=== PATIENT | male | born 1985 | race American Indian/Alaskan Native ===

== ENCOUNTER 2017-07-04 20:19 | Emergency (ER) | payer SELFPAY ==
[2017-07-04 21:47] VITALS: BP 144/86
[2017-07-05] MEDS ORDERED: DECADRON IM STA (01:20)
[2017-07-05] MEDS ORDERED: TORADOL IM ONE (01:21)
[2017-07-05] MEDS ORDERED: DECADRON IV ONE (01:23)
[2017-07-05] MEDS ORDERED: TORADOL IV ONE (01:23)
[2017-07-05] MEDS ORDERED: NACL 0.9% 1000 ML 1,000 ML IV ONE (01:24)
[2017-07-05] MEDS ORDERED: CLEOCIN 900 MG/50 mL 900 MG/50 ML BAG IV ONE (01:25)
--- NOTE | 2017-07-05 01:25 | Emergency Department Report ---
ED ENT HPI - General Chief complaint: Sore Throat Stated complaint: THROAT PAIN Time Seen by Provider: 07/05/17 01:06 Source: patient Mode of arrival: Ambulatory Limitations: No Limitations - History of Present Illness Initial comments: Patient reports that he has sore throat, he said his tonsils was removed when he was young but he is not really sure. Patient has both tonsils per nurse's. Patient reports difficulty swallowing and, neck pain and drooling. Here from reports that he has fever and reports some coughing. The throat is 10 out of 10. Denies any difficulty speaking denies any nausea or vomiting. Denies any nasal congestion or headache. Patient said that he was in [facility] and they put him on penicillin and is being taken penicillin twice a day for the last 3 days. He could not come in before he got the penicillin from.. Patient with a history of schizophrenic disorder and bipolar disorder. MD complaint: sore throat, difficulty swallowing -: week(s) Location: throat Severity: severe Severity scale (0 -10): 10 Quality: constant, other (sore) Consistency: other (pain with swallowing) Improves with: none, other Worsens with: swallowing Context-Epistaxis: history of similar Associated Symptoms: fever, cough, pain with swallowing, sore throat. denies: gum swelling, toothache, tinnitus, hearing loss, discharge from ear, rhinorrhea - Related Data Previous Rx's Medication Instructions Recorded Last Taken Type Clindamycin [Clindamycin CAP] 300 mg PO Q8H 10 Days #30 cap 07/05/17 Unknown Rx Ibuprofen [Motrin] 600 mg PO Q8H PRN 4 Days #12 tablet 07/05/17 Unknown Rx Allergies Allergy/AdvReac Type Severity Reaction Status Date / Time No Known Allergies Allergy Unverified 07/04/17 21:49 ED Dental HPI - General Chief complaint: Sore Throat Stated complaint: THROAT PAIN Time Seen by Provider: 07/05/17 01:06 Source: patient Mode of arrival: Ambulatory Limitations: No Limitations - Related Data Previous Rx's Medication Instructions Recorded Last Taken Type Clindamycin [Clindamycin CAP] 300 mg PO Q8H 10 Days #30 cap 07/05/17 Unknown Rx Ibuprofen [Motrin] 600 mg PO Q8H PRN 4 Days #12 tablet 07/05/17 Unknown Rx Allergies Allergy/AdvReac Type Severity Reaction Status Date / Time No Known Allergies Allergy Unverified 07/04/17 21:49 ED Review of Systems ROS: Stated complaint: THROAT PAIN Other details as noted in HPI Comment: All other systems reviewed and negative Constitutional: fever Eyes: denies: eye discharge ENT: throat pain. denies: ear pain, congestion Respiratory: cough. denies: orthopnea, shortness of breath, SOB with exertion, SOB at rest, stridor, wheezing Cardiovascular: denies: chest pain, palpitations, dyspnea on exertion, orthopnea , edema, syncope, paroxysmal nocturnal dyspnea Gastrointestinal: denies: abdominal pain, nausea, vomiting, diarrhea, constipation, hematemesis, melena, hematochezia Musculoskeletal: denies: back pain, joint swelling, arthralgia, myalgia Skin: denies: rash Neurological: denies: headache, weakness, numbness, paresthesias, confusion, abnormal gait, vertigo ED Past Medical Hx - Past Medical History Previous Medical History?: Yes Hx Seizures: Yes Hx Psychiatric Treatment: Yes (schizophrenic,biploar) Hx Asthma: Yes - Surgical History Past Surgical History?: Yes Additional Surgical History: right tonsill removed as a child - Family History Family history: no significant - Social History Smoking Status: Current Every Day Smoker Substance Use Type: None - Medications Home Medications: Home Medications Medication Instructions Recorded Confirmed Last Taken Type Clindamycin [Clindamycin CAP] 300 mg PO Q8H 10 Days #30 cap 07/05/17 Unknown Rx Ibuprofen [Motrin] 600 mg PO Q8H PRN 4 Days #12 tablet 07/05/17 Unknown Rx ED Physical Exam - General Limitations: No Limitations General appearance: alert, in no apparent distress - Head Head exam: Present: atraumatic, normocephalic, normal inspection - Eye Eye exam: Present: normal appearance, PERRL, EOMI. Absent: periorbital swelling , periorbital tenderness Pupils: Present: normal accommodation - ENT ENT exam: Present: normal orophraynx, mucous membranes moist, TM's normal bilaterally, normal external ear exam - Expanded ENT Exam Expanded Ear exam: Present: normal external inspection Mouth exam: Present: normal external inspection. Absent: drooling, trismus, muffled voice, tongue normal, tongue elevation, laceration Teeth exam: Present: normal inspection Throat exam: Positive: tonsillar erythema, tonsillomegaly. Negative: normal inspection, tonsillar exudate, R peritonsillar mass, L peritonsillar mass - Neck Neck exam: Present: normal inspection, tenderness, full ROM, lymphadenopathy ( anterior neck), other (no C-spine tenderness). Absent: meningismus, thyromegaly - Expanded Neck Exam Expanded Neck exam: Present: tenderness (anterior neck). Absent: midline deformity, anterior neck swelling, thyroid mass, carotid bruit, tracheal deviation - Respiratory Respiratory exam: Present: normal lung sounds bilaterally. Absent: respiratory distress, wheezes, rales, rhonchi, stridor, chest wall tenderness, accessory muscle use, decreased breath sounds, prolonged expiratory - Cardiovascular Cardiovascular Exam: Present: normal rhythm, tachycardia, normal heart sounds. Absent: systolic murmur, diastolic murmur - GI/Abdominal GI/Abdominal exam: Present: soft, normal bowel sounds. Absent: distended, tenderness, guarding, rebound, rigid - Extremities Exam Extremities exam: Present: normal inspection, full ROM, normal capillary refill , other (no clubbing, cyanosis or edema. No neurovascular compromise. +2 pulses in all extremities). Absent: tenderness, pedal edema, joint swelling, calf tenderness - Back Exam Back exam: Present: normal inspection, full ROM. Absent: tenderness, CVA tenderness (R), CVA tenderness (L), muscle spasm, paraspinal tenderness, vertebral tenderness, rash noted - Neurological Exam Neurological exam: Present: alert, oriented X3, normal gait - Psychiatric Psychiatric exam: Present: normal affect, normal mood - Skin Skin exam: Present: warm, dry, intact, normal color. Absent: rash ED Course Vital Signs 07/04/17 07/05/17 07/05/17 21:39 01:57 02:27 Temperature 99.3 F Pulse Rate 112 H Respiratory 18 18 18 Rate Blood Pressure 144/86 O2 Sat by Pulse 98 Oximetry 07/05/17 05:23 Temperature 98.9 F Pulse Rate 90 Respiratory 18 Rate Blood Pressure O2 Sat by Pulse 100 Oximetry - Reevaluation(s) Reevaluation #1: 07/05/17 05:[address] soft tissue neck with IV contrast due to reports of difficulty swallowing, drooling and swollen tonsils. Patient had CT scan done that revealed no peritonsillar abscess but he does have polyps seen tonsils that are slightly prominent prominent but there are no mass or abscess. Epiglottis is normal and he does have bilateral cervical Lynphadenopathy ED Medical Decision Making - Lab Data Result diagrams: 07/05/17 01:29 07/05/17 01:29 Lab Results 07/05/17 07/05/17 Range/Units 01:29 01:29 WBC 11.5 H (4.5-11.0) K/mm3 RBC 4.54 (3.65-5.03) M/mm3 Hgb 14.2 (11.8-15.2) gm/dl Hct 41.5 (35.5-45.6) % MCV 92 (84-94) fl MCH 31 (28-32) pg MCHC 34 (32-34) % RDW 13.9 (13.2-15.2) % Plt Count 327 (140-440) K/mm3 Lymph % (Auto) 29.9 (13.4-35.0) % Dewitt % (Auto) 14.8 H (0.0-7.3) % Eos % (Auto) 0.5 (0.0-4.3) % Baso % (Auto) 0.5 (0.0-1.8) % Lymph # 3.4 (1.2-5.4) K/mm3 Dewitt # 1.7 H (0.0-0.8) K/mm3 Eos # 0.1 (0.0-0.4) K/mm3 Baso # 0.1 (0.0-0.1) K/mm3 Seg Neutrophils % 54.3 (40.0-70.0) % Seg Neutrophils # 6.2 (1.8-7.7) K/mm3 Sodium 138 (137-145) mmol/L Potassium 4.3 (3.6-5.0) mmol/L Chloride 98.9 (98-107) mmol/L Carbon Dioxide 25 (22-30) mmol/L Anion Gap 18 mmol/L BUN 12 (9-20) mg/dL Creatinine 1.0 (0.8-1.5) mg/dL Estimated GFR > 60 ml/min BUN/Creatinine Ratio 12 % Glucose 101 H (75-100) mg/dL Calcium 9.0 (8.4-10.2) mg/dL - Radiology Data Radiology results: report reviewed CT scan of the neck with contrast revealed patient with moderate adenoid hyperplasia, palate HEENT tonsils are slightly prominent but there is no asymmetry mass or abscess. There is bilateral cervical and airways are not compromised - Medical Decision Making ED course: Presented to the emergency room complaining of difficulty swallowing , drooling and sore throat. He reported that he has a history of tonsillectomy blood physical findings for enlarged tonsils and enlarged cervical lymph nodes. Patient had CT scan of soft tissue neck with contrast that showed no peritonsillar abscess or mass. Patient with tonsillitis. No airway compromise. Uvula is midline and tongue is normal. Please refer to radiology section for complete CT scan report. Patient had CBC done and his white count was mildly elevated he has a low-grade temp. BMP is stable. Pt given an IV normal saline 1 L emergency room, Toradol 30 mg IV, Zofran 4 mg IV and Decadron 10 mg IV and emergency room without any adverse reaction. He is also given clindamycin 600 mg IV. I discussed the patient that he has been taking penicillin for a long period of time and it is possible that he buildup resistance because he said when he was in [facility] he was taking it all the time. Also patient does not know iF penicillin is outdated. I discussed the patient and CT findings and lab findings along with diagnosis and treatment plan. Patient discharged home in stable condition with prescription for clindamycin and Motrin and to follow-up with primary care physician in 2 days. Critical care attestation.: If time is entered above; I have spent that time in minutes in the direct care of this critically ill patient, excluding procedure time. ED Disposition Clinical Impression: Recurrent tonsillitis, Fever in adult Pharyngitis Qualifiers: Pharyngitis/tonsillitis etiology: unspecified etiology Qualified Code(s): J02.9 - Acute pharyngitis, unspecified Disposition: DC- TO HOME OR SELFCARE Is pt being admited?: No Does the pt Need Aspirin: No Condition: Stable Instructions: Tonsillitis (ED), Pharyngitis (ED), Fever in Adults (ED) Additional Instructions: Please gargle with warm salt water Take Motrin as prescribed for sore throat Clindamycin as prescribed for tonsillitis that is resistant to penicillin Prescriptions: Clindamycin [Clindamycin CAP] 300 mg PO Q8H 10 Days #30 cap Ibuprofen [Motrin] 600 mg PO Q8H PRN 4 Days #12 tablet PRN Reason: Pain Referrals: PRIMARY CARE, [Primary Care Provider] - 2-3 Days [facility] [Outside] - 2-3 Days Forms: Work/School Release Form(ED)
[2017-07-05 01:40] LABS: Basophils % (Auto) 0.5 % (0.0-1.8); Eosinophils % (Auto) 0.5 % (0.0-4.3); Hematocrit 41.5 % (35.5-45.6); Hemoglobin 14.2 gm/dl (11.8-15.2); Mean Corpuscular HGB Conc 34 % (32-34); Mean Corpuscular Hemoglobin 31 pg (28-32); Mean Corpuscular Volume 92 fl (84-94); Platelet Count 327 K/mm3 (140-440); Red Blood Count 4.54 M/mm3 (3.65-5.03); Red Cell Distribution Width 13.9 % (13.2-15.2); White Blood Count 11.5 K/mm3 (4.5-11.0)
[2017-07-05 02:00] LABS: Anion Gap 18 mmol/L; BUN/Creatinine Ratio 12; Blood Urea Nitrogen 12 mg/dL (9-20); Carbon Dioxide 25 mmol/L (22-30); Chloride 98.9 mmol/L (98-107); Glucose 101 mg/dL (75-100); Potassium 4.3 mmol/L (3.6-5.0); Sodium 138 mmol/L (137-145)
--- NOTE | 2017-07-05 04:05 | Cat Scan Report ---
FINAL REPORT PROCEDURE: CT NECK W CON TECHNIQUE: Computerized axial tomography of the soft tissue neck was performed following the IV injection of iodinated nonionic contrast. HISTORY: sore throat , fever and difficulty swallow COMPARISON: No prior studies are available for comparison. FINDINGS: Skull and scalp: Normal. Paranasal sinuses: Normal. Nasopharynx: There is moderate adenoid hyperplasia.. Oral cavity: Jber tonsils are slightly prominent but there is no asymmetry, mass or abscess.. Epiglottis/vallecula: Normal . Larynx/pyriform sinuses: Normal . Thyroid gland: Normal . Lymph nodes: There is bilateral cervical lymphadenopathy. The largest node on the right is in the submandibular region measuring 2.3 centimeters. There is a prominent node in the left carotid space measuring 22 centimeters. There is no neck mass or abscess. Salivary glands: Normal . Upper thorax: Normal . IMPRESSION: There is moderate adenoid hyperplasia.. Jber tonsils are slightly prominent but there is no asymmetry, mass or abscess.. There is bilateral cervical lymphadenopathy. There is no compromise of the airway.
== END 2017-07-05 05:54 | disposition home or self-care (01) ==
LOC: ED 20:19
DX: J03.91 Acute recurrent tonsillitis, unspecified (principal); J02.9 Acute pharyngitis, unspecified; F17.210 Nicotine dependence, cigarettes, uncomplicated
CPT/HCPCS: 36415; 70491; 80048; 85025; 87116; 87430; 96365; 96375; 99284; J1100; J1885; J7030; Q9967

== ENCOUNTER 2017-07-09 10:22 | Emergency (ER) | payer SELFPAY ==
[2017-07-09] MEDS ORDERED: LIDOCAINE VISCOUS 2% PO ONE (13:32)
--- NOTE | 2017-07-09 13:38 | Emergency Department Report ---
ED ENT HPI - General Chief complaint: Sore Throat Stated complaint: SORE THROAT Time Seen by Provider: 07/09/17 12:13 Source: patient Mode of arrival: Ambulatory Limitations: No Limitations - History of Present Illness Initial comments: This is a 31-year-old male nontoxic, well nourished in appearance, no acute signs of distress presents to the ED with c/o of sore throat intermittently in chronic 4 years. Patient stated he had a follow-up appointment to get a tonsillitis but patient has not scheduled an appointment due to incarceration. Patient now presents with sore throat again. Denies any difficulty breathing, fever, chills, nausea, vomiting, chest pain, shortness of breath, headache or stiff neck. Denies any allergies. Past medical history includes asthma, psychiatric, and seizure. MD complaint: sore throat -: year(s) Location: throat Severity: mild Severity scale (0 -10): 8 Quality: aching Consistency: constant Improves with: none Worsens with: none Associated Symptoms: pain with swallowing, sore throat. denies: fever, cough, gum swelling, toothache, tinnitus, hearing loss, discharge from ear, rhinorrhea - Related Data Previous Rx's Medication Instructions Recorded Last Taken Type Clindamycin [Clindamycin CAP] 300 mg PO Q8H 10 Days #30 cap 07/05/17 Unknown Rx Ibuprofen [Motrin] 600 mg PO Q8H PRN 4 Days #12 tablet 07/05/17 Unknown Rx Amoxicillin/K Clav Tab [Augmentin 1 tab PO Q12HR #20 tab 07/09/17 Unknown Rx 875 mg] Nystas/Diphen/Xyl Visc/Mylanta 15 ml MM Q8H 10 Days udc 07/09/17 Unknown Rx [Magic Mouthwash] Allergies Allergy/AdvReac Type Severity Reaction Status Date / Time No Known Allergies Allergy Unverified 07/04/17 21:49 ED Dental HPI - General Chief complaint: Sore Throat Stated complaint: SORE THROAT Time Seen by Provider: 07/09/17 12:13 Source: patient Mode of arrival: Ambulatory Limitations: No Limitations - Related Data Previous Rx's Medication Instructions Recorded Last Taken Type Clindamycin [Clindamycin CAP] 300 mg PO Q8H 10 Days #30 cap 07/05/17 Unknown Rx Ibuprofen [Motrin] 600 mg PO Q8H PRN 4 Days #12 tablet 07/05/17 Unknown Rx Amoxicillin/K Clav Tab [Augmentin 1 tab PO Q12HR #20 tab 07/09/17 Unknown Rx 875 mg] Nystas/Diphen/Xyl Visc/Mylanta 15 ml MM Q8H 10 Days udc 07/09/17 Unknown Rx [Magic Mouthwash] Allergies Allergy/AdvReac Type Severity Reaction Status Date / Time No Known Allergies Allergy Unverified 07/04/17 21:49 ED Review of Systems ROS: Stated complaint: SORE THROAT Other details as noted in HPI Constitutional: denies: chills, fever Eyes: denies: eye pain, eye discharge, vision change ENT: throat pain. denies: ear pain Respiratory: denies: cough, shortness of breath, wheezing Cardiovascular: denies: chest pain, palpitations Endocrine: no symptoms reported Gastrointestinal: denies: abdominal pain, nausea, diarrhea Genitourinary: denies: urgency, dysuria Musculoskeletal: denies: back pain, joint swelling, arthralgia Skin: denies: rash, lesions Neurological: denies: headache, weakness, paresthesias Psychiatric: denies: anxiety, depression Hematological/Lymphatic: denies: easy bleeding, easy bruising ED Past Medical Hx - Past Medical History Previous Medical History?: Yes Hx Seizures: Yes Hx Psychiatric Treatment: Yes (schizophrenic,biploar) Hx Asthma: Yes - Surgical History Past Surgical History?: No Additional Surgical History: right tonsill removed as a child - Social History Smoking Status: Never Smoker Substance Use Type: None - Medications Home Medications: Home Medications Medication Instructions Recorded Confirmed Last Taken Type Clindamycin [Clindamycin CAP] 300 mg PO Q8H 10 Days #30 cap 07/05/17 Unknown Rx Ibuprofen [Motrin] 600 mg PO Q8H PRN 4 Days #12 tablet 07/05/17 Unknown Rx Amoxicillin/K Clav Tab [Augmentin 1 tab PO Q12HR #20 tab 07/09/17 Unknown Rx 875 mg] Nystas/Diphen/Xyl Visc/Mylanta 15 ml MM Q8H 10 Days udc 07/09/17 Unknown Rx [Magic Mouthwash] ED Physical Exam - General Limitations: No Limitations General appearance: alert, in no apparent distress - Head Head exam: Present: atraumatic, normocephalic, normal inspection - Eye Eye exam: Present: normal appearance, PERRL, EOMI. Absent: scleral icterus, conjunctival injection, nystagmus, periorbital swelling, periorbital tenderness Pupils: Present: normal accommodation - ENT ENT exam: Present: mucous membranes moist, TM's normal bilaterally, normal external ear exam - Expanded ENT Exam Expanded Ear exam: Present: normal external inspection Mouth exam: Present: normal external inspection, tongue normal. Absent: drooling, trismus, muffled voice, tongue elevation, laceration Teeth exam: Present: normal inspection Throat exam: Positive: tonsillar erythema, tonsillomegaly (2+), other (Uvula midline. No abscess or swelling noted. ). Negative: tonsillar exudate, R peritonsillar mass, L peritonsillar mass - Neck Neck exam: Present: normal inspection, full ROM. Absent: tenderness, meningismus, lymphadenopathy, thyromegaly - Respiratory Respiratory exam: Present: normal lung sounds bilaterally. Absent: respiratory distress, wheezes, rales, rhonchi, stridor, chest wall tenderness, accessory muscle use, decreased breath sounds, prolonged expiratory - Cardiovascular Cardiovascular Exam: Present: regular rate, normal rhythm, normal heart sounds. Absent: irregular rhythm, systolic murmur, diastolic murmur, rubs, gallop - GI/Abdominal GI/Abdominal exam: Present: soft, normal bowel sounds. Absent: distended, tenderness, guarding, rebound, rigid, diminished bowel sounds - Rectal Rectal exam: Present: deferred - Extremities Exam Extremities exam: Present: normal inspection, full ROM, normal capillary refill. Absent: tenderness, pedal edema, joint swelling, calf tenderness - Back Exam Back exam: Present: normal inspection, full ROM. Absent: tenderness, CVA tenderness (R), CVA tenderness (L), muscle spasm, paraspinal tenderness, vertebral tenderness, rash noted - Neurological Exam Neurological exam: Present: alert, oriented X3, CN II-XII intact, normal gait, reflexes normal - Psychiatric Psychiatric exam: Present: normal affect, normal mood - Skin Skin exam: Present: warm, dry, intact, normal color. Absent: rash ED Course Vital Signs 07/09/17 10:25 Temperature 98.8 F Pulse Rate 104 H Respiratory 16 Rate Blood Pressure 136/77 - Reevaluation(s) Reevaluation #1: 07/09/17 13:37 Patient is speaking in full sentences with no signs of distress noted. ED Medical Decision Making - Medical Decision Making This is a 31-year-old male that presents with tonsillitis. Patient is stable and was examined by me. Patient received lidocaine viscous for pain patient stated symptoms of sore throat is improving and is subsided. Patient was instructed Follow-up with a primary care doctor/ear nose and throat in 3-5 days or if symptoms worsen and continue return to emergency room as soon as possible. At time time of discharge, the patient does not seem toxic or ill in appearance. No acute signs of distress noted. Patient agrees to discharge treatment plan of care. No further questions noted by the patient. Patient received Augmentin and Magic mouthwash at discharge. Critical care attestation.: If time is entered above; I have spent that time in minutes in the direct care of this critically ill patient, excluding procedure time. ED Disposition Clinical Impression: Tonsillitis Disposition: DC-01 TO HOME OR SELFCARE Is pt being admited?: No Does the pt Need Aspirin: No Condition: Stable Instructions: Tonsillitis (ED) Additional Instructions: Follow-up with a primary care doctor/ENT in 3-5 days or if symptoms worsen and continue return to emergency room as soon as possible. Prescriptions: Amoxicillin/K Clav Tab [Augmentin 875 mg] 1 tab PO Q12HR #20 tab Nystas/Diphen/Xyl Visc/Mylanta [Magic Mouthwash] 15 ml MM Q8H 10 Days [facility] [place]: KJ GRACE MD [Primary Care Provider] - 3-5 Days THOMAS SUN MD [Staff Physician] - 3-5 Days [facility] [Provider Group] - 3-5 Days [facility] [Outside] - 3-5 Days [facility] [Outside] - 3-5 Days Forms: Work/School Release Form(ED)
[2017-07-09 15:10] VITALS: BP 139/87
== END 2017-07-09 15:09 | disposition home or self-care (01) ==
LOC: ED 10:22
DX: J03.90 Acute tonsillitis, unspecified (principal); J45.909 Unspecified asthma, uncomplicated
CPT/HCPCS: 99282

== ENCOUNTER 2017-07-14 15:02 | Emergency (ER) | payer SELFPAY ==
[2017-07-14 15:10] VITALS: BP 144/90
[2017-07-14] MEDS ORDERED: BICILLIN L-A IM ONE ×2 (15:32→21:49)
[2017-07-14] MEDS ORDERED: DECADRON IM ONE (15:32)
--- NOTE | 2017-07-14 15:36 | Emergency Department Report ---
Chief Complaint: Chest Pain Stated Complaint: HEADACHE/CHEST PAIN - HPI History of Present Illness: pt seen to tonsilitis on 07/05/2017 however did not fill clindamycin po as "I cant take pills I hate them" complains of throat pain and drooling at this time. Has phone number for [facility] [phone] [facility] for [facility] after tx pt is not HI or SI at this time. - Exam Vital Signs: Vital Signs 07/14/17 15:06 Temperature 99.4 F Pulse Rate 114 H Respiratory 16 Rate Blood Pressure 144/90 O2 Sat by Pulse 97 Oximetry MSE screening note: Focused history and physical exam performed. Due to findings the following was ordered: ED Disposition for MSE Condition: Stable
--- NOTE | 2017-07-14 21:35 | Emergency Department Report ---
ED ENT HPI - General Chief complaint: Chest Pain Stated complaint: HEADACHE/SORE THROAT Time Seen by Provider: 07/14/17 21:25 Source: patient Mode of arrival: Ambulatory Limitations: No Limitations - History of Present Illness Initial comments: 31-year-old male past medical history asthma, seizures, schizophrenia, bipolar disorder, recurrent tonsillitis presents with complaint of acute on chronic sore throat. Patient is awake and alert. Speaking in full sentences in no audible wheezing or stridor. States that his throat is hurting. Patient states that he was seen for this issue approximately a week ago but has not taken any medicines as he has not filled his prescriptions. Denies any pus or blood drainage from mouth. Patient denies chest pain shortness of breath nausea or vomiting. States that swallowing solids is somewhat painful but can swallow liquids. No trismus nodrooling no tripoding on exam. MD complaint: sore throat Onset/Timin -: week(s) Location: throat Severity: moderate Severity scale (0 -10): 4 Quality: aching Consistency: intermittent Worsens with: swallowing Associated Symptoms: sore throat - Related Data Previous Rx's Medication Instructions Recorded Last Taken Type Clindamycin [Clindamycin CAP] 300 mg PO Q8H 10 Days #30 cap 07/05/17 Unknown Rx Ibuprofen [Motrin] 600 mg PO Q8H PRN 4 Days #12 tablet 07/05/17 Unknown Rx Amoxicillin/K Clav Tab [Augmentin 1 tab PO Q12HR #20 tab 07/09/17 Unknown Rx 875 mg] Nystas/Diphen/Xyl Visc/Mylanta 15 ml MM Q8H 10 Days udc 07/09/17 Unknown Rx [Magic Mouthwash] Dextromethorphan/Benzocaine 1 each PO Q4H PRN #1 box 07/14/17 Unknown Rx [Cepacol Sorethroat-Cough Mukesh] Allergies Allergy/AdvReac Type Severity Reaction Status Date / Time No Known Allergies Allergy Unverified 07/04/17 21:49 ED Dental HPI - General Chief complaint: Chest Pain Stated complaint: HEADACHE/CHEST PAIN Time Seen by Provider: 07/14/17 21:25 Source: patient Mode of arrival: Ambulatory Limitations: No Limitations - Related Data Previous Rx's Medication Instructions Recorded Last Taken Type Clindamycin [Clindamycin CAP] 300 mg PO Q8H 10 Days #30 cap 07/05/17 Unknown Rx Ibuprofen [Motrin] 600 mg PO Q8H PRN 4 Days #12 tablet 07/05/17 Unknown Rx Amoxicillin/K Clav Tab [Augmentin 1 tab PO Q12HR #20 tab 07/09/17 Unknown Rx 875 mg] Nystas/Diphen/Xyl Visc/Mylanta 15 ml MM Q8H 10 Days udc 07/09/17 Unknown Rx [Magic Mouthwash] Dextromethorphan/Benzocaine 1 each PO Q4H PRN #1 box 07/14/17 Unknown Rx [Cepacol Sorethroat-Cough Mukesh] Allergies Allergy/AdvReac Type Severity Reaction Status Date / Time No Known Allergies Allergy Unverified 07/04/17 21:49 ED Review of Systems ROS: Stated complaint: HEADACHE/CHEST PAIN Other details as noted in HPI Constitutional: denies: chills, fever Eyes: denies: eye pain, eye discharge, vision change ENT: throat pain. denies: ear pain Respiratory: denies: cough, shortness of breath, wheezing Cardiovascular: denies: chest pain, palpitations Endocrine: no symptoms reported Gastrointestinal: denies: abdominal pain, nausea, diarrhea Genitourinary: denies: urgency, dysuria Musculoskeletal: denies: back pain, joint swelling, arthralgia Skin: denies: rash, lesions Neurological: denies: headache, weakness, paresthesias Psychiatric: denies: anxiety, depression Hematological/Lymphatic: denies: easy bleeding, easy bruising ED Past Medical Hx - Past Medical History Previous Medical History?: Yes Hx Seizures: Yes Hx Psychiatric Treatment: Yes (schizophrenic,biploar) Hx Asthma: Yes - Surgical History Past Surgical History?: Yes Additional Surgical History: right tonsill removed as a child - Social History Smoking Status: Current Every Day Smoker Substance Use Type: None - Medications Home Medications: Home Medications Medication Instructions Recorded Confirmed Last Taken Type Clindamycin [Clindamycin CAP] 300 mg PO Q8H 10 Days #30 cap 07/05/17 Unknown Rx Ibuprofen [Motrin] 600 mg PO Q8H PRN 4 Days #12 tablet 07/05/17 Unknown Rx Amoxicillin/K Clav Tab [Augmentin 1 tab PO Q12HR #20 tab 07/09/17 Unknown Rx 875 mg] Nystas/Diphen/Xyl Visc/Mylanta 15 ml MM Q8H 10 Days udc 07/09/17 Unknown Rx [Magic Mouthwash] Dextromethorphan/Benzocaine 1 each PO Q4H PRN #1 box 07/14/17 Unknown Rx [Cepacol Sorethroat-Cough Mukesh] ED Physical Exam - General Limitations: No Limitations General appearance: alert, in no apparent distress - Head Head exam: Present: atraumatic, normocephalic - Eye Eye exam: Present: normal appearance, PERRL, EOMI - ENT ENT exam: Present: mucous membranes moist - Expanded ENT Exam Expanded Throat exam: Positive: tonsillar erythema (no SPRING SETTER, no tonsillar exudates but some tonsillar erythema on exam) - Neck Neck exam: Present: normal inspection - Respiratory Respiratory exam: Present: normal lung sounds bilaterally. Absent: respiratory distress - Cardiovascular Cardiovascular Exam: Present: regular rate, normal rhythm. Absent: systolic murmur, diastolic murmur, rubs, gallop - GI/Abdominal GI/Abdominal exam: Present: soft, normal bowel sounds - Rectal Rectal exam: Present: deferred - Extremities Exam Extremities exam: Present: normal inspection - Back Exam Back exam: Present: normal inspection - Neurological Exam Neurological exam: Present: alert, oriented X3, CN II-XII intact, normal gait - Psychiatric Psychiatric exam: Present: normal affect, normal mood - Skin Skin exam: Present: warm, dry, intact, normal color. Absent: rash ED Course Vital Signs 07/14/17 15:06 Temperature 99.4 F Pulse Rate 114 H Respiratory 16 Rate Blood Pressure 144/90 O2 Sat by Pulse 97 Oximetry ED Medical Decision Making - Medical Decision Making A/P: Tonsillitis/pharyngitis 1-patient treated empirically with Bicillin. No clinical signs of peritonsillar abscess no trismus and no drooling no tripoding on clinical exam and oropharynx open and patent with the uvula midline on exam. Strep swab sent 2-decadron one time dose for anti-inflammatory effect 3-follow up with primary care and ENT 4-to clarify patient is complaining of sore throat states he does not currently have chest pain shortness of breath or palpitations at this time. I advised patient to fill the prescriptions that he was given for sore throat and will add throat lozenges to this regimen. Critical care attestation.: If time is entered above; I have spent that time in minutes in the direct care of this critically ill patient, excluding procedure time. ED Disposition Clinical Impression: Tonsillitis, Sore throat Pharyngitis Qualifiers: Pharyngitis/tonsillitis etiology: unspecified etiology Qualified Code(s): J02.9 - Acute pharyngitis, unspecified Disposition: TO HOME OR SELFCARE Is pt being admited?: No Does the pt Need Aspirin: No Condition: Stable Instructions: Tonsillitis (ED), Pharyngitis (ED) Prescriptions: Dextromethorphan/Benzocaine [Cepacol Sorethroat-Cough Mukesh] 1 each PO Q4H PRN #1 box PRN Reason: Sore Throat Referrals: [facility] [Outside] - 3-5 Days [facility] [Outside] - 3-5 Days Time of Disposition: 21:35
[2017-07-14] MEDS ORDERED: DECADRON ONE (21:49)
== END 2017-07-14 22:15 | disposition home or self-care (01) ==
LOC: ED 15:02
DX: J03.90 Acute tonsillitis, unspecified (principal); F17.200 Nicotine dependence, unspecified, uncomplicated
CPT/HCPCS: 87116; 87430; 96372; 99282; J0561; J1100

== ENCOUNTER 2019-10-27 21:14 | Emergency (ER) | payer SELFPAY ==
[2019-10-27 22:06] LABS: Hematocrit 41.9 % (35.5-45.6); Hemoglobin 13.7 gm/dl (11.8-15.2); Mean Corpuscular HGB Conc 33 % (32-34); Mean Corpuscular Volume 92 fl (84-94); Platelet Count 292 K/mm3 (140-440); Red Blood Count 4.57 M/mm3 (3.65-5.03); Red Cell Distribution Width 15.2 % (13.2-15.2)
[2019-10-27 22:19] LABS: BUN/Creatinine Ratio 11; Blood Urea Nitrogen 10 mg/dL (9-20); Hemolysis Index 8
[2019-10-27 22:33] LABS: Bilirubin,Urine NEG (Negative); Blood,Urine NEG (Negative); Color,Urine Yellow (Yellow); Mucus,Urine FEW /HPF; Protein,Urine <15 mg/dL mg/dL (Negative); WBC,Urine < 1.0 /HPF (0.0-6.0)
--- NOTE | 2019-10-27 22:38 | Emergency Department Report ---
HPI - General Chief Complaint: Psych Time Seen by Provider: 10/27/19 21:56 - HPI HPI: 34-year-old -[place] male presents to the emergency department for what appears to be a mental health evaluation secondary to auditory hallucinations and suicidal ideations. The patient appears to have a history of schizophrenia. The patient is not very forthcoming about the reason for his visit or his symptoms. When asked for details the patient says "I am getting really tired of always talking about this and explaining myself because nobody ever does an ything or tells me how to make it stop." However, during our conversation, the patient did mention suicidal ideations, auditory hallucinations and schizophrenia. The patient says "I do not want to take Seroquel." He also appears to be on Risperdal and Cogentin but does not know the doses. ED Past Medical Hx - Past Medical History Previous Medical History?: Yes Hx Seizures: Yes Hx Psychiatric Treatment: Yes (schizophrenia,biploar) Hx Asthma: Yes Additional medical history: schizophrenia - Surgical History Past Surgical History?: Yes Additional Surgical History: right tonsill removed as a child - Social History Smoking Status: Never Smoker - Medications Home Medications: Home Medications Medication Instructions Recorded Confirmed Last Taken Type Bictegrav/Emtricit/Tenofov Ala 1 cap PO QDAY 10/28/19 10/28/19 Unknown History [Biktarvy 50-200-25 mg (Nf)] ED Review of Systems ROS: Stated complaint: MH EVAL/SI Other details as noted in HPI Comment: Unobtainable due to pts medical conditions Psychiatric: auditory hallucinations, suicidal thoughts Physical Exam - Physical Exam Vital Signs: Vital Signs 10/27/19 21:53 Temperature 98.3 F Pulse Rate 94 H Respiratory 18 Rate Blood Pressure 110/75 [Left] O2 Sat by Pulse 97 Oximetry Physical Exam: GENERAL: The patient is well-developed well-nourished. HENT: Normocephalic. Atraumatic. Patient has moist mucous membranes. EYES: Extraocular motions are intact. NECK: Supple. Trachea is midline. CHEST/LUNGS: Clear to auscultation. There is no respiratory distress noted. HEART/CARDIOVASCULAR: Regular. There is no tachycardia. ABDOMEN: Abdomen is soft, nontender. Patient has normal bowel sounds. SKIN: Skin is warm and dry. NEURO: The patient is awake, alert, and oriented. The patient has no focal neurologic deficits. Normal speech. MUSCULOSKELETAL: There is no tenderness or deformity. There is no evidence of acute injury. ED Course Vital Signs 10/27/19 21:53 Temperature 98.3 F Pulse Rate 94 H Respiratory 18 Rate Blood Pressure 110/75 [Left] O2 Sat by Pulse 97 Oximetry ED Medical Decision Making - Lab Data Result diagrams: 10/27/19 21:49 10/27/19 21:49 - Medical Decision Making This patient presents to the emergency department with the complaint of auditory hallucinations and suicidal ideations. For this reason he has been made a 1013. His labs have been mostly unremarkable except for a urine drug screen positive for marijuana and cocaine. His vital signs been stable throughout his ED course. He appears medically cleared for psychiatric placement. - Differential Diagnosis Schizophrenia, schizoaffective, bipolar disorder, substance abuse Critical Care Time: No Critical care attestation.: If time is entered above; I have spent that time in minutes in the direct care of this critically ill patient, excluding procedure time. ED Disposition Clinical Impression: Auditory hallucinations, Suicidal ideations Disposition: [id number] PSY HOSP/PSY UNIT Is pt being admited?: No Condition: Stable Time of Disposition: 02:09
[2019-10-27 22:39] LABS: Amphetamine Screen,Urine PRESUMPTIVE NEGATIVE; Benzodiazepines Screen,Urine PRESUMPTIVE NEGATIVE; Methadone Screen,Urine PRESUMPTIVE NEGATIVE; Opiate Screen,Urine PRESUMPTIVE NEGATIVE
[2019-10-27 22:55] LABS: Cannabinoid Screen,Urine PRESUMPTIVE POSITIVE; Cocaine Screen,Urine PRESUMPTIVE POSITIVE
[2019-10-27 23:54] LABS: Basophils % (Manual) 0 % (0.0-1.8); Total Cells Counted 100
[2019-10-27 23:55] LABS: Anisocytosis Few; Large Platelets Few; Platelet Estimate Consistent w Auto
--- NOTE | 2019-10-29 15:04 | Consultation ---
History of Present Illness - Reason for Consult Consult date: 10/29/19 Reason for consult: Psychiatric assessment - History of Present Psychiatric Illness Mr. Mcqueen is a 34-year-old -[place] male, the patient is noted in in the recliner with his eyes closed easily aroused, he is dressed appropriately for the occasion he maintains eye contact. When asked why he was here the patient stated, "I am hearing voices telling me to hurt myself". The patient stated that he has a history of schizophrenia and bipolar and that he was just released from [facility] in September. The patient stated that he has not taken any medication since released from [facility] because he has no stable accommodation. Patient also reports visual hallucination of seeing aliens. The patient reports that he takes Risperdal and Cogentin. He reports that his depression is 8 out of 10. He reports sleeping and eating well and reports his mood has good. The patient reports suicidal thoughts of voices telling him to hurt himself. The patient denies homicidal ideations. PAST PSYCHIATRIC HISTORY: Diagnoses: Schizophrenia bipolar Suicide attempts or Self-harm behavior:yes Prior psychiatric hospitalizations: [facility] Substance Abuse history: Marijuana Previous psychiatric medications tried: Risperdal and Cogentin Outpatient treatment: Yes PAST MEDICAL HISTORY: Family Psychiatric History None reported or documented SOCIAL HISTORY Marital Status: Single Living Arrangements: Homeless Employment Status: Unemployed Access to guns/weapons: Denies Education: 12th History of Abuse: denies Legal History: Yes ROS: Constitutional: Negative for weight loss ENT: Negative for stridor Respiratory: Negative for cough or hemoptysis All other systems reviewed and are negative MENTAL STATUS General Appearance and Behavior: age appropriate, good eye contact, cooperative with questioning and polite Cooperation: Cooperative Psychomotor Behavior: within normal limits Mood: OK Affect and affective range: Congruent with stated mood Thought Process: Fluent/Logical and Goal-directed Thought Content: SI Speech: Normal volume and Regular rate and rhythm Intellectual Functioning Average Suicidal Ideation: YES Homicidal Ideation: Denies HI Impulse Control: intact Insight and Judgment: normal insight and judgment Memory: Normal Attention: Normal Orientation: alert and oriented RECOMMENDATIONS MEDICATIONS: Start Risperdal 1 mg PO twice daily Start Cogentin 0.5 mg PO twice daily Risks, benefits and alternatives of medications discussed with the patient, questions answered and consent obtained from patient. PSYCHOTHERAPY: Supportive psychotherapy provided MEDICAL: Per primary team DELIRIUM PRECAUTIONS: Please re-orient patient frequently, keep lights on during the day, and minimize benzodiazepines and opiates as these medications could worsen patient's confusion. COMMUNITY RELATIONS SPECIALIST: DISPOSITION: The patient meets the requirement for acute inpatient psychiatric treatment at this time. LEGAL STATUS: 1013 FOLLOW-UP: Will follow UNTIL D/C Medications and Allergies Allergies Allergy/AdvReac Type Severity Reaction Status Date / Time No Known Allergies Allergy Verified 07/14/17 21:51 Home Medications Medication Instructions Recorded Confirmed Last Taken Type Bictegrav/Emtricit/Tenofov Ala 1 cap PO QDAY 10/28/19 10/28/19 Unknown History [Biktarvy 50-200-25 mg (Nf)] Mental Status Exam - Vital signs Last Vital Signs Temp 98.4 F 10/29/19 01:47 Pulse 64 10/29/19 01:47 Resp 18 10/29/19 01:47 BP 99/61 10/29/19 01:47 Pulse Ox 98 10/29/19 01:47 Results Result Diagrams: 10/27/19 21:49 10/27/19 21:49 All other labs normal.
[2019-10-29 20:19] VITALS: BP 100/57
[2019-10-29] MEDS ORDERED: BENZTROPINE 0.5 MG TAB PO SCH (22:00)
[2019-10-29] MEDS ORDERED: risperiDONE 1 MG TAB PO SCH (22:00)
== END 2019-10-29 23:36 ==
LOC: ED 21:14
DX: R44.0 Auditory hallucinations (principal); R45.851 Suicidal ideations; F31.9 Bipolar disorder, unspecified; J45.909 Unspecified asthma, uncomplicated; Z79.899 Other long term (current) drug therapy; Z86.69 Personal history of other diseases of the nervous system and sense organs
CPT/HCPCS: 36415; 80048; 80307; 80320; 81001; 85007; 85025; G0480